=== PATIENT | female | born 2000 | race Caucasian/White ===

== ENCOUNTER 2019-02-16 23:22 | Emergency (ER) | payer BC ==
[~2019-02-16] VITALS: Ht 172.7 cm; Wt 109.1 kg
[2019-02-16 23:40] VITALS: TEMP 98.2
[2019-02-17] MEDS ORDERED: BLISOVI FE 1.51 EACH PO (01:53)
[2019-02-17] MEDS ORDERED: TYLENOL 325MG325 MG PO (01:53)
[2019-02-17 03:02] LABS: HEMOGLOBIN 11.6 g/dl (12.0-15.0); MEAN CELL VOLUME 80 fl (80.0-95.0); MEAN CORPUSCULAR HEMOGLOBIN 26 pg (26.0-32.0); MEAN CORPUSCULAR HGB CONC 32 g/dl (33.0-37.0); MEAN PLATELET VOLUME 10.7 fl (7.4-10.4); PLATELET COUNT 164 K/mm3 (130-400); RED BLOOD COUNT 4.52 M/mm3 (4.10-5.30); REDCELL DISTRIBUTION WIDTH-CV 15.7 % (11.5-14.5)
[2019-02-17 03:07] LABS: HEMATOCRIT 36.1 % (35.0-45.0)
[2019-02-17 03:13] LABS: ALBUMIN 3.9 gm/dL (3.5-5.0); BILIRUBIN,TOTAL 1.9 mg/dL (0.0-1.0); CALCIUM 8.8 mg/dL (8.4-10.2); CREATININE, serum 0.63 (0.52-1.25); POTASSIUM 3.7 mmol/L (3.4-5.0); TOTAL PROTEIN 7.9 gm/dL (6.4-8.2)
[2019-02-17 03:26] LABS: BAND 8 % (0-10); NEUTROPHILS 12 % (42.0-75.2); PLATELET ESTIMATE NORMAL (NORMAL)
[2019-02-17 03:27] LABS: HYPOCHROMIA 1+; LYMPHOCYTE 76 % (20.0-51.0); MICROCYTOSIS 1+
[2019-02-17 03:34] LABS: MONOSCREEN POSITIVE
[2019-02-17] MEDS ORDERED: ZOFRAN 4MG T4 MG/TAB PO (03:50)
[2019-02-17 04:38] VITALS: BP 137/74; PULSE 100
[2019-02-17 08:38] LABS: PATHOLOGY DIFF REVIEW OK
== END 2019-02-17 04:38 | disposition home or self-care (01) ==
LOC: COL.ER 23:22
PROVIDERS: Emergency Medicine
DX: B27.90 Infectious mononucleosis, unspecified without complication (principal); E66.9 Obesity, unspecified
CPT/HCPCS: J0780; J1200; J7030